=== PATIENT | female | born 1985 | race Caucasian/White ===

== ENCOUNTER → 2022-06-03 17:27 | Outpatient (CLI) | payer OTHER, MEDICAID, SELFPAY ==
--- NOTE | 2022-06-03 17:30 | DI.US.S_ITS ---
PROCEDURE: US PELVIC COMPLETE INDICATIONS: Heavy, painful periods; Pelvic pain TECHNIQUE: Real-time scanning was performed of the pelvic organs, with image documentation. Additional endovaginal scanning was necessary due to incomplete visualization of the adnexal and endometrial structures by transabdominal scanning. COMPARISON: None. FINDINGS: Uterus: Uterus is anteverted and normal in size at 11.1 x 4.1 x 5.9 cm. The myometrium is heterogeneous. The endometrium measures 10 mm combined thickness. Left intramural fibroid measuring 1.9 cm. Ovaries: Normal ovaries measuring 4.2 x 2.3 x 1.9 cm on the right and 3.6 x 1.7 x 3.0 cm on the left. No adnexal masses. Less than 12 subcentimeter follicular cysts bilaterally. Other: No pathologic free abdominal or pelvic fluid. IMPRESSION: 1. A 1.9 cm intramural fibroid. 2. Normal appearance of the ovaries bilaterally. We strive to produce accurate, complete, and clear reports of imaging services. To assist us in improving patient care, this report was composed using standard report templates and voice recognition software. Therefore, it may contain abnormal punctuation, insertions and/or omissions. Occasional wrong-word or sound-alike substitutions may occur. Though we review the report and make efforts to correct it, we do recommend that the report be read carefully in proper context to recognize any text inaccuracies. Dictated by: Los MILLER Interpreted: Danyel Woods MD on 06/04/2022 at 8:57 Transcribed by: SYDNEY on 06/04/2022 at 8:58 Approved by: Danyel Woods M.D. on 06/04/2022 at 21:08
== END ==
PROVIDERS: PCP Family Medicine; Referring Provider Obstetrics & Gynecology; Visit Provider Obstetrics & Gynecology
DX: E28.2 Polycystic ovarian syndrome (principal); R10.2 Pelvic and perineal pain; D25.1 Intramural leiomyoma of uterus
CPT/HCPCS: 76830; 76856

== ENCOUNTER → 2022-07-10 09:20 | Outpatient (CLI) | payer OTHER, MEDICAID, SELFPAY ==
[2022-07-10 10:17] LABS: COVID19 -Nasal RAPID Negative (Negative)
== END ==
PROVIDERS: PCP Family Medicine; Visit Provider Obstetrics & Gynecology
DX: Z20.822 Contact with and (suspected) exposure to COVID-19 (principal); Z01.812 Encounter for preprocedural laboratory examination
CPT/HCPCS: 87635

== ENCOUNTER 2022-07-13 08:56 | Day surgery (SDC) | payer OTHER, MEDICAID, SELFPAY ==
[2022-07-06 12:09] VITALS: BMI 34.0
[2022-07-13] VITALS (16 sets, daily range): BP systolic 85–137; BP diastolic 53–90; PULSE 77–128; RESP 14–45; TEMP 36.1–36.9; O2SAT 92–99; BMI 34.0
--- NOTE | 2022-07-13 | PATH_ITS ---
[facility] Accession Number: [id number] . 01 Material submitted: . uterus - UTERUS,BILATERAL FALLOPIAN TUBES,BILATERAL OVARIES . 01 Diagnosis: A. Uterus, Bilateral Fallopian Tubes, Bilateral Ovaries, Supracervical Hysterectomy, Bilateral Salpingectomy and Oophorectomy: Myometrium with adenomyosis and leiomyoma (1.5 cm). Weakly proliferative endometrium with focal features of breakdown. Bilateral fallopian tubes with features of hydrosalpinx and benign paratubal cysts. Bilateral ovaries with multiple physiologic cysts (up to 1 cm). No evidence of dysplasia, endometrioid intraepithelial neoplasia, or malignancy. MRV 07/20/2022 1119 Local . 01 Electronically signed: . Afsaneh James MD, Pathologist NPI- [id number] . 01 Gross description: . The specimen is received in formalin labeled with the patient's name and uterus, B/L fallopian tubes, B/L ovaries, and consists of a disrupted fragmented uterus (87 grams, 10.5 x 7.4 x 4.2 cm in aggregate) with attached fallopian tube (6.3 x 0.9 cm), and attached ovary (11 grams, 3.7 x 3.2 x 1.5 cm), detached fallopian tube (3.5 x 0.7 cm), detached ovary (10 grams, 4.5 x 2.1 x 1.6 cm), and no cervix identified. Due to the distortion and disruption of the uterus, orientation cannot be determined. The serosa is moon and smooth with no adhesions or hemorrhage identified. The endometrium is moon and velvety, and averages 0.1 cm thick. The myometrium is moon and trabecular, and the maximum thickness cannot be determined. A well-circumscribed white whorled nodule is identified measuring 1.5 cm in greatest dimension with no additional lesions, hemorrhage, or necrosis identified. . The attached fallopian tube has smooth congested serosa with a large cystic structure near the fimbriated end measuring 0.7 cm in greatest dimension filled with clear serous fluid. Sectioning reveals the lumen to be discontinuous but otherwise stellate and unremarkable. The attached ovary is moon and cerebriform, and sectioning reveals multiple cystic structures filled with moon serous fluid measuring up to 1.2 cm in greatest dimension while the remaining ovarian parenchyma is physiologic and unremarkable. . The detached fallopian tube has congested smooth serosa with a cystic structure measuring 0.3 cm in greatest dimension filled with clear serous fluid. Sectioning reveals an unremarkable stellate lumen. The detached ovary is moon and cerebriform, and sectioning reveals multiple cystic structures filled with clear serous fluid measuring up to 1.0 cm in greatest dimension. Software Configuration Manager sections are submitted as follows: . A1: Software Configuration Manager endometrium. A2: Software Configuration Manager white whorled nodule. A3: Attached fallopian to include entire fimbriae and cross-sections. A4: Software Configuration Manager attached ovary to include cystic structures. A5: Detached fallopian tube to include entire fimbriae and cross-sections. A6: Detached ovary to include cystic structures. ([id number]) /MRV 07/15/2022 1231 Local . 01 Pathologist provided ICD-10: N92.0, D25.9 . 01 CPT . 495317 Specimen Comment: A courtesy copy of this report has been sent to [phone] Performed at: 01 [facility] [address] [place] [address] [address] [facility], [place], [place] [id number] MD Lizandro Schrader MD Phone: [phone]
[2022-07-13] MEDS: ACETAMINOPHEN IV 1,000 MG/100 ML VIAL 400 MG IV (09:36)
[2022-07-13] MEDS: LACTATED RINGERS 1,000 ML 42 ML IV (09:36)
--- NOTE | 2022-07-13 09:41 | PM.PREOP ---
Pre-operative Note COVID-19 COVID-19 status: Negative Result date/Date tested (Pos, Neg/Pending): 07/10/22 Criteria for continued procedure: Non-surgical alternatives not available or appropriate per current SOC Interval Note History & Physical reviewed/Exam performed by Physician: Yes Changes to H&P: No
[2022-07-13 09:42] LABS: Add Manual Diff / Slide Review NO; Basophils Absolute Auto 0 /uL (0-100); Basophils Percent Auto 0.2 % (0-2); Eosinophils Absolute Auto 0 /uL (0-450); Hematocrit 35.9 % (36-46); Hemoglobin 11.4 g/dL (12.0-16.0); Lymphocytes Absolute Auto 1100 /uL (1100-4500); Lymphocytes Percent Auto 26.8 % (25-40); Mean Corpuscular HGB Conc 31.8 % (30-36); Mean Corpuscular Hemoglobin 24.2 PG (26-34); Mean Corpuscular Volume 76.3 fL (80-100); Monocytes Absolute Auto 400 /uL (0-900); Monocytes Percent Auto 9.2 % (3-14); Neutrophils Absolute Auto 2600 /uL (1500-7000); Neutrophils Percent Auto 63.8 % (50-75); Platelet Count 326 X10^3/uL (150-400); Red Blood Cell Count 4.71 X10^6/uL (4.0-5.2); Red Cell Distribution Width 16.8 % (11.6-14.8); White Blood Cell Count 4.1 X10^3/uL (4.5-11.0)
[2022-07-13] MEDS: CEFAZOLIN 2 GM/100 ML PREMIX 100 ML IV (10:08)
[2022-07-13] MEDS: BUPIVACAINE 0.5% W/ EPI (PF) 30 ML VIAL INJ (10:25)
--- NOTE | 2022-07-13 10:31 | SUR.OPER ---
Lithotomy on padded OR bed. Wiota Pad Positioner under torso. Head on pillow, arms padded and tucked at sides. Legs secured in padded yellow fins stirrups.
--- NOTE | 2022-07-13 12:11 | P.OP_ITS ---
Operative Date/Time/Diagnoses Date of procedure: 07/13/22 Time of procedure: 10:50 Pre-op diagnosis: Menorrhagia Chronic pelvic pain Premenstrual dysphoric disorder (PMDD) Post-op diagnosis: other (Same as above; abdominopelvic adhesions, lysed) Procedure & Clinicians Procedure: Procedures Operation Date: 07/13/22 09:45 Actual Procedure Side Surgeon p Laparoscopic Supracervical Hysterectomy w/ Bilateral Salpingo-oophorectomy Enrique Shepard MD Indications: Mellisa is a 37-year-old , LMP 05/07/2022, who presented 3 monthas ago with progressively heavy but regular menses.? Patient experienced menarche at age 11 and due to her irregular periods, she was evaluated and diagnosed with PCOS at age 14.? She was started on oral contraceptives which were poorly tolerated therefore discontinued.? Despite her irregular periods, she conceived her 1st without difficulty and delivered by primary section.? She would difficulty getting with her 2nd and despite ovulation induction and treatment of male sub fertility, patient did not become until she had laparoscopy which revealed significant scarring following her for .? Following laparoscopy with lysis of adhesions the patient did conceive spontaneously and delivered her 2nd child by .? Her 3rd resulted in spontaneous miscarriage but her 4th and 5th pregnancies were conceived spontaneously and delivered by repeat section.? Her periods throughout this time were regular but heavy and both the heavy flow and duration have increased significantly since her sterilization procedure performed at time of her last in 2019.? Her menses occur every 30 days with flow lasting 5-7 days.? 3-4 days of her menses are extremely heavy with overflows despite the use of 2 super absorbent tampons and pads.? The patient is essentially homebound for 3-4 days of each period due to severe cramping and heavy flow.? In addition she is been diagnosed with anemia and she continues to take additional iron but feels extremely washed out.? In addition to severe dysmenorrhea with these heavy periods, the patient has developed continuous pain and more recently pain with deep penetration during intercourse.? Pain is not want her pelvis radiates to her low back and she also has some discomfort anteriorly as well.? Patient has had no recent pelvic imaging.? Patient's last Pap was 05/2022 and all of her Paps have been normal throughout her reproductive life.? Review of systems is negative for intermenstrual spotting but she has developed occasional postcoital spotting.? In addition the patient has severe premenstrual dysphoria for the week prior to her menses.? During the course of our conversations we can review the different options for managing both the patient's pain as well as her menorrhagia and severe PMDD symptoms.? She has considered these options since our 1st visit and performed her own due diligence regarding the options.? After considering all those options, the patient has decided that she would like to proceed with hysterectomy at the earliest possible date.? In addition she would like to have bilateral salpingo oophorectomy performed for her severe PMDD symptoms as she is not a candidate for combination oral contraceptives due to a history of migraines with aura.? She presents today for preoperative evaluation, counseling, and consent. Surgeon: Enrique Shepard Shredder/Granulator Operator: Rosario Carr Anesthesia Type: General Operative Notes Findings: Upon entry into the abdomen, extensive adhesions involving the omentum to the anterior abdominal wall extending all the way down to the anterior cul-de-sac on the left were noted. These were all lysed during the course of the surgery. There were extensive adhesions in the the area of the left parametria which were also lysed during the course of the surgery anterior cul-de-sac is free of significant abnormalities but there is significant scarring from the patient's 4 previous sections. The uterus is upper limits of normal size the surface demonstrates changes consistent with adenomyosis. Both ovaries and fallopian tubes appeared to be normal. The remainder of the pelvis and abdomen were normal to laparoscopic visualization Closure Type: primary Specimen(s): left tube & ovary, right tube & ovary and uterus Applied: catheter Estimated blood loss (mL): 25 Blood products transfused: none Procedure in detail: With the patient in modified dorsal lithotomy position preparations were made by prepping and draping the patient in usual manner for vaginal surgery and insertion of Tirado catheter. A pre-surgical time-out was then taken in accordance with [facility] policy. A bivalve speculum was then placed in the vagina and the cervix visualized. The anterior lip of the cervix was then grasped with a single-tooth tenaculum. The uterus was sounded to 8 cm, the endocervical canal dilated slightly, and a Socialite uterine manipulator with a medium colpotomy cup was placed. The umbilicus was then infiltrated with 0.5% Marcaine with epinephrine. A 1 cm umbilical incision was made transversely and a Veress needle was used to insufflate the abdominal cavity with carbon dioxide. Once the abdomen was appropriately insufflated, a 5 mm trocar and sleeve were then placed through the umbilical incision. The scope was placed through the trocar and the initial assessment of the intra-abdominal contents carried out. A 2nd and 3rd 5 mm port was then placed 1st in the right mid quadrant from then the left mid quadrant by infiltration of the skin and subcutaneous tissues, a 1 cm transverse incision and insertion of the 5 mm bladeless port. Using a 3 puncture technique, the abdomen and pelvis were inspected laparoscopy and photographically documented. The omental adhesions involving the anterior abdominal wall were then taken down using the PowerSeal device so as to fully be able to visualize the pelvis. Uterus is mobilized with the VCare manipulator and attention turned to the left adnexa. The distal tube and ovary were elevated and using the PowerSeal device the left infundibulopelvic ligament was coagulated and divided with the dissection then taken down across the mesosalpinx to the round ligament on the left which was coagulated and divided. Adhesions involving the left parametria were then dissected and rendered hemostatic with they PowerSeal device all the way down to the level of the high endocervix. The ascending uterine vessels were then coagulated on the left and the bladder flap extended across the midline to the right side. Adhesions of the bladder to the cervix and the upper vagina were extremely dense and therefore the decision was made to proceed with a supracervical procedure instead of a TLH. Attention was then turned to the right side where the distal tube and ovary was grasped and the infundibulopelvic ligament on the right coagulated and divided with the PowerSeal device. The dissection was then carried out toward the cornua and dissection was then carried down using the PowerSeal device so as to divide the round ligament with blunt and sharp dissection of the broad down to the level of the uterine artery. The uterine artery was then skeletonized after completing development of a bladder flap, coagulated, and divided. The uterus was completely devascularized after coagulation of both uterine arteries and the VCare device was removed from the uterine cavity. A Joelle loop was then used to amputate the uterine corpus at the level of the high endocervix and the cervical stump was coagulated with monopolar current. There was no evidence of any bleeding on either side and the endocervical canal was then coagulated with monopolar cautery. A 4 cm transverse incision was made along the line of the old Pfannenstiel scars and a 15 mm trocar and sleeve was inserted through the incision into the abdominal cavity. An Endo-Catch specimen retrieval bag was then used to capture the ut erus and brought up through the incision. The fascial incision was then extended bilaterally and a small Sae retractor was placed into the bag so that the specimen could be safely morcellated. Once the morcellation was complete, the Sae retractor was removed and repair of the fascial defect was accomplished with 0 Vicryl in a running stitch. The abdomen was then reinsufflated, the pelvis inspected for any abnormality or bleeding, and with complete hemostasis assured, the pneumoperitoneum was vented and the ports removed. All of the 5 mm ports were then closed with 4-0 Monocryl on the skin using inverted interrupted sutures. The skin of the transverse suprapubic incision was then approximated with 4-0 Monocryl inverted interrupted sutures. Skin glue was placed and after the glue was dried, an appropriate dressings were applied. The case was then terminated, the patient awakened, and then transferred to PACU after having tolerated the procedure well. Complications: none Post-operative Condition: stable Disposition: PACU Plan for aftercare: Recovery in ambulatory surgery in discharge home later today if pain is under control and she is tolerating oral intake well.
[2022-07-13] MEDS: diphenhydrAMINE 50 MG/ML VIAL 25 MG IV ×2 (12:30→12:44)
[2022-07-13] MEDS: hydrOXYzine 50 MG/ML INJ IM (12:49)
[2022-07-13] MEDS: LORazepam 2 MG/ML INJ 0.5 MG IV (13:04)
[2022-07-13] MEDS: LACTATED RINGERS 1,000 ML 100 ML IV ×2 (14:25→23:57)
[2022-07-13] MEDS: KETOROLAC 30 MG/ML VIAL IV ×2 (16:10→20:16)
[2022-07-13] MEDS: TOPIRAMATE 100 MG TABLET 200 MG PO (16:11)
[2022-07-13 16:49] LABS: Estimated Glomerular Filt Rate > 60 mL/min (>60)
[2022-07-13] MEDS: OXYCODONE IR 5 MG TABLET 10 MG PO ×2 (17:23→22:10)
[2022-07-13] MEDS: VENLAFAXINE ER 75 MG CAP 300 MG PO (17:26)
--- NOTE | 2022-07-13 19:34 | PC.NURSE ---
Pt arrived to room 223 at 1710 she is A&Ox3, very lethargic allowed to rest. She is easily aroused and able to answer questions appropriately. Scant spotting to christian pad. Lap sites x4 c/d/i/. continuous monitoring. Tirado in place. LR at 100 ml/hr.
[2022-07-13] MEDS: SPIRONOLACTONE 25 MG TABLET 50 MG PO (20:16)
[2022-07-13] MEDS: DOCUSATE 100 MG CAPSULE 200 MG PO (20:16)
[2022-07-13] MEDS: ACETAMINOPHEN 325 MG TABLET 650 MG PO (22:11)
[2022-07-13] MEDS: MORPHINE 4 MG/ML INJ IV (23:55)
[2022-07-13] MEDS: TRAZODONE 50 MG TABLET PO (23:55)
--- NOTE | 2022-07-14 00:44 | PC.NURSE ---
Patient lying in bed, a/o x 4 and using call light appropriately. Scant drainage to christian pad. Lap sites are CDI. Sister at bedside.
[2022-07-14] MEDS: OXYCODONE IR 5 MG TABLET 10 MG PO ×3 (01:37→14:07)
[2022-07-14] MEDS: KETOROLAC 30 MG/ML VIAL IV ×2 (01:37→06:15)
[2022-07-14 06:21] VITALS: BP 102/69; PULSE 68; RESP 16; TEMP 36.4; O2SAT 99
[2022-07-14 06:28] LABS: Add Manual Diff / Slide Review NO; Basophils Absolute Auto 0 /uL (0-100); Basophils Percent Auto 0.1 % (0-2); Eosinophils Absolute Auto 0 /uL (0-450); Hemoglobin 9.9 g/dL (12.0-16.0); Lymphocytes Absolute Auto 1500 /uL (1100-4500); Lymphocytes Percent Auto 23.3 % (25-40); Mean Corpuscular Volume 77.9 fL (80-100); Monocytes Absolute Auto 500 /uL (0-900); Monocytes Percent Auto 8.4 % (3-14); Neutrophils Absolute Auto 4400 /uL (1500-7000); Neutrophils Percent Auto 68.2 % (50-75); Platelet Count 281 X10^3/uL (150-400); Red Blood Cell Count 3.97 X10^6/uL (4.0-5.2); Red Cell Distribution Width 17.1 % (11.6-14.8); White Blood Cell Count 6.4 X10^3/uL (4.5-11.0)
--- NOTE | 2022-07-14 07:05 | PM.DS.1 ---
History of Present Illness History of Present Illness Date Patient Seen: 07/14/22 Time Patient Seen: 07:30 Chief complaint: TOTAL LAP HYSTERECTOMY W/KANDI SALPINGECTOMY *OPB* Discharge Providers Provider Date of admission: 07/13/2022 Discharge Date: 07/14/22 Primary care physician: Timothy Pinto MD Discharge provider: Enrique Shepard MD Summary Hospital Course Discharge Diagnosis: Status post laparoscopic supracervical hysterectomy with bilateral salpingo oophorectomy for intractable menorrhagia, chronic pelvic pain, and severe PMDD Hospital Course: Mellisa was admitted on the morning of 07/13/2022 and underwent an uneventful laparoscopic supracervical hysterectomy with bilateral salpingo oophorectomy. Details of the procedure are well summarized on my operative note of that date. Following surgery the patient has done extremely well with prompt return of bowel and bladder function, she is ambulating independently, tolerating a regular diet, and her pain is well controlled with oral pain medications. She will be discharged at this time to home in an afebrile normotensive condition after counseling regarding precautionary symptoms, limitations activity, medications, and plans for follow-up which will be in approximately 4 weeks. Medications at discharge will include all of her home meds she was taking prior to surgery including oxycodone 5 mg every 4-6 hours as needed pain, and naproxen as needed. In addition she will start taking transdermal estradiol 0.075 mg daily via a twice weekly patch, and Prometrium 200 mg p.o. HS. The latter 2 prescriptions were sent electronically to her pharmacy on [facility]. Status at Discharge Cognitive/behavioral status at discharge: oriented Functional status at discharge: independent ambulation Overall status at discharge: patient is progressing back to baseline Time Spent with Patient Time spent: Less than 30 minutes Exam Vital Signs (past 8 hours): - 07/14/22 06:21 Temperature 97.5 F L Pulse Rate 68 Respiratory Rate 16 Blood Pressure 102/69 Pulse Oximetry 99 Oxygen Flow Rate 0 Oxygen Delivery Method Room Air Oxygen Flow Rate 0 Const General: cooperative and comfortable Nutritional Appearance: average body habitus Orientation: alert and oriented x3 HENMT Head: normal to inspection, atraumatic and abrasion Ears: hearing grossly normal bilaterally Face and sinus: face symmetric Eyes General: appearance normal, both eyes and all related structures Conjunctivae: conjunctivae normal Sclera: sclerae normal EOM: EOM intact bilaterally Neck Neck: normal visual inspection Resp Effort & Inspection: normal respiratory effort and able to speak in complete sentences Auscultation: clear to auscultation bilaterally Cardio Rate: regular rate Rhythm: regular rhythm Heart Sounds: S1 normal, S2 normal and no murmurs GI Inspection: normal to inspection and incision (Surgical dressings clean and dry) Palpation: soft, no hepatosplenomegaly and tender (Mild, diffuse postsurgical tenderness) External Female Exam: other (No significant bleeding noted) Extrem General: no calf tenderness Psych Appearance: grossly normal Mental Status: mental status grossly normal Speech and Movement: speech and movement normal Mood: congruent mood Affect: normal affect Attitude: cooperative Thought Process: normal Thought Content: normal Judgment: judgment good Objective Labs Result Diagrams: 07/14/22 06:09 07/13/22 16:20 Labs: Laboratory Results - last 24 hr 07/13/22 07/13/22 07/13/22 09:15 09:25 16:20 WBC 4.1 L RBC 4.71 Hgb 11.4 L Hct 35.9 L MCV 76.3 L MCH 24.2 L MCHC 31.8 RDW 16.8 H Plt Count 326 Neut % (Auto) 63.8 Lymph % (Auto) 26.8 Cottle % (Auto) 9.2 Eos % (Auto) 0.0 L Baso % (Auto) 0.2 Neut # (Auto) 2600 Lymph # (Auto) 1100 Cottle # (Auto) 400 Eos # (Auto) 0 Baso # (Auto) 0 Creatinine 0.66 Estimated GFR > 60 Blood Type O Negative Antibody Screen Negative 07/14/22 06:09 WBC 6.4 D RBC 3.97 L Hgb 9.9 L Hct 31.0 L MCV 77.9 L MCH 25.0 L MCHC 32.0 RDW 17.1 H Plt Count 281 Neut % (Auto) 68.2 Lymph % (Auto) 23.3 L Cottle % (Auto) 8.4 Eos % (Auto) 0.0 L Baso % (Auto) 0.1 Neut # (Auto) 4400 Lymph # (Auto) 1500 Cottle # (Auto) 500 Eos # (Auto) 0 Baso # (Auto) 0 Creatinine Estimated GFR Blood Type Antibody Screen [facility] Medical History (Updated 07/10/22 @ 10:00 by Enrique Shepard MD) Anemia Anxiety and depression Asthma Chicken pox (~1987) Fibroids (~2001) Headache Heavy menstrual period (~1997) Migraines Ovarian cyst (~1999) Painful menstrual periods (~1997) PCOS (polycystic ovarian syndrome) (~1998) Sleep apnea Surgical History (Updated 08/26/21 @ 21:55 by Anushka Wilson) Anesthesia History of arthroscopy of knee (~1995) History of section History of knee surgery (~1997) Family History (Updated 08/26/21 @ 21:59 by Anushka Wilson) Father Diabetes mellitus Hypertension Hyperlipidemia Mental health problem Mother Cancer Mental health problem Brother Mental health problem Sister Mental health problem Grandfather Cancer Hypertension Hyperlipidemia Grandmother Cancer Social History household members: spouse and children Smoking Status: Never smoker alcohol intake: current Discharge Assessment & Plan Assessment and Plan Assessment: Status post laparoscopic supracervical hysterectomy with bilateral salpingo oophorectomy for intractable menorrhagia, chronic pelvic pain, and severe PMDD Plan of Treatment: Routine postoperative care with initiation of postsurgical HRT in the form of estradiol biweekly patch 0.075 mg and Prometrium 200 mg p.o. HS. Follow-up to be arranged in 2 weeks. Discharge Plan Discharge Plan Patient Disposition: Home Provider Discharge Comment: Please review the written instructions you received when you were discharged from the hospital. Your follow-up will need to be scheduled in about 4 weeks after my returned from vacation on 08/04/2022. In the meanwhile in my absence, if you have any questions, concerns, or issues that need to be addressed, please contact my office at [phone] and one of my colleagues can address those concerns. Discharge orders & Medications Discharge Orders: Discharge (Order); Ordered 07/14/22 Ordered By: Enrique Shepard Prescriptions: New estradiol [Vivelle-Dot] 0.075 mg/24 hr patch semiweekly 1 patch transdermal 2XW Qty: 8 12RF Rx Instructions: apply 1 patch for 3 days alternating with 1 patch for 4 days each week for 3 wks per 4-wk cycle progesterone micronized [Prometrium] 200 mg capsule 200 mg PO BEDTIME Qty: 30 12RF Continued topiramate 200 mg tablet 200 mg PO DAILY Qty: 30 0RF ondansetron 8 mg tablet,disintegrating 8 mg PO Q8H PRN (Reason: nausea and vomiting) Qty: 20 0RF oxycodone 5 mg tablet 5 mg PO Q4H PRN (Reason: pain) Qty: 30 0RF naproxen 500 mg tablet 500 mg PO Q8H PRN (Reason: pain) Qty: 30 12RF Rx Instructions: For best effect, start medication 1-2 days prior to expected onset of period spironolactone 50 mg tablet 50 mg PO BID Qty: 60 12RF venlafaxine 150 mg capsule,extended release 24hr 220 mg PO DAILY trazodone 50 mg tablet 50 mg PO BEDTIME PRN (Reason: Sleep) venlafaxine 75 mg capsule,extended release 24hr 75 mg PO DAILY Rx Instructions: TAKE 1 CAPSULE (75 MG) BY MOUTH DAILY. TO BE TAKEN WITH EXISTING 150 MG DAILY FOR AT TDD OF 225 MG. dextroamphetamine-amphetamine 30 mg capsule,extended release 24hr 60 mg PO QAM Rx Instructions: TAKE 2 CAPSULES (60 MG) BY MOUTH EVERY MORNING. albuterol sulfate 90 mcg/actuation HFA aerosol inhaler 1 puff inhalation ONCE PRN (Reason: Shortness Of Breath) clindamycin phosphate 1 % solution 1 applic topical BID lithium carbonate 300 mg capsule 300 mg PO BID Follow up/Referrals: Timothy Pinto MD [Primary Care Provider] - Enrique Shepard MD [Physician] - Diet/Activity/Treatments Diet: Diet as Tolerated Activity: As tolerated Other treatments: [id number] Tylenol may be used for additional pain relief. Foxe-brp-rfithvo stool softeners may be necessary if you become constipated. Skin/Wound/Dressing Care Report to your healthcare provider any signs of infection, such as:: chills, fever, night sweats, increased pain, unusual drainage and unusual redness Dressing: The upper 3 dressings may be removed on the morning of 07/15/2022. The lower dressing should remain in place until 07/16/2022. Visit Report/Discharge Packet Instructions: DI for Hysterectomy, DI for Laparoscopy, DI for Prescription Opioid Use Stand Alone Forms: Surgery Discharge Print Language: Latvian Discharge Data Primary Care Provider: Timothy Pinto Attending Provider: Enrique Shepard Quality VTE Deep Vein Thrombosis/Pulmonary Embolism Present on Admission: No
[2022-07-14] MEDS: DOCUSATE 100 MG CAPSULE 200 MG PO (09:59)
[2022-07-14] MEDS: ACETAMINOPHEN 325 MG TABLET 650 MG PO (10:00)
[2022-07-14] MEDS: VENLAFAXINE ER 75 MG CAP 300 MG PO (10:44)
[2022-07-14] MEDS: TOPIRAMATE 100 MG TABLET 200 MG PO (10:45)
[2022-07-14] MEDS: estradioL 1 MG TABLET PO (10:45)
--- NOTE | 2022-07-14 12:41 | CM.DANOTE ---
DCP Assessment: Payor: Morgan PCP: Timothy Pinto Pt is a 37 y.o. F admitted to the AC unit following total hysterectomy. Pt came up to the AC unit for observation following surgery. DCP attempted to meet with pt but pt asleep. Sister at the bedside and DCP able to talk to her. DCP introduced herself and role. Pt sister states she lives on [address] with her and children. Sister came up from [place] to help take care of pt and pt children. Pt is independent at baseline and still drives POV. Sister anticipates discharge tonight. Sister having to take ferry and requesting ferry pass. DCP instructed her to talk with nurse upon discharge. No other needs at this time. DCP to continue to follow case. White board updated and instructed to call if needed. Sister thankful for discussion. P: Once pt is medically stable for discharge, pt to discharge home back to [facility] with her sister. Elaina Pace RN/NORISP Discharge Planning/Care Management CM Discharge Assessment Start: 07/14/22 11:46 Freq: Status: Active Protocol: Document 07/14/22 12:40 AJ (Rec: 07/14/22 12:41 [id number]) Discharge Planning Assessment Assigned Morning Caregiver Elaina Pace RN/NORISP Advance Directives? No History Provided By Family Member,Medical Record Prior Living Arrangements House Household Members spouse,children Type of transporation used prior to Drives own vehicle admit Independent with ADL's Yes Is patient alert and oriented? Yes Caregiver for Another Yes: Children Discharge Plan Home Transportation Arrangement Sister POV Referrals Initiated None needed Whiteboard Updated in Patient Room with Yes name and ext. # of Morning Caregiver Comment Instructed to call Review Status In Process Please Provide Date Initial DC 07/14/22 Assessment Was Performed Next Review Type Continued Stay Review Pre-Anesthesia Assessment Start: 07/06/22 10:50 Freq: Status: Active Protocol: Document 07/06/22 12:09 CAB (Rec: 07/06/22 12:14 CAB [id number]) Pre-Anesthesia Assessment Patient Information Reviewed Via Chart Review Comment COVID screen not identified Seen Specialist in Last 12 Months Yes Specialist Seen Picture Painter,Other Primary Language Sudanese Public Affairs Officer Required No Height 160.02 cm Weight 87.09 kg Body Mass Index (BMI) 34.0 Barriers to Learning None Hx Anesthesia Reactions No Anesthesia Review Requested No Loan Assistant No Smoking Status Never smoker Pain Present Pain Reported Patient is completely paralyzed or No completely immobile Mental Status Oriented to own ability Hx Sleep Apnea No Currently Taking a Beta Lee No Anti-Coagulant Therapy No Cardiac Testing No Hx Pacemaker/ICD No Pacemaker Rep Required? No Cardiac Clearance Received Not Applicable Urinary Catheter Present No Hx Urinary Self Catheterization No Diabetes No Patient No Marital Status Patient Discharge Plan Description Return Home Comment Lives on [facility]
[2022-07-14 13:50] VITALS: BP 94/68; PULSE 95; RESP 16; TEMP 36.1; O2SAT 99
--- NOTE | 2022-07-14 19:06 | PC.NURSE ---
Discharge: Pt feels ready to d/c to home. Sister is taking her home. Has been up and walking in room. Po pain meds have been effective. Tirado out and has voided with out problems. Tolerates diet w/out problems. Seen by MD and given d/c instructions. Dressings on abd are c/d/i. Priority load pass given. Spouse has already picked up rx for her at pharmacy. Pt d/c to home via auto with sister.
== END 2022-07-14 16:56 | disposition home or self-care (01) ==
LOC: OR 08:58 → AC 14:02
PROVIDERS: PCP Family Medicine; Referring Provider Obstetrics & Gynecology; Visit Provider Obstetrics & Gynecology
PROC: 0UT94ZZ Resection of Uterus, Percutaneous Endoscopic Approach (ICD-10-PCS; CPT 58542; principal; 2022-07-13 09:45)
DX: N92.0 Excessive and frequent menstruation with regular cycle (principal); F32.81 Premenstrual dysphoric disorder; N73.6 Female pelvic peritoneal adhesions (postinfective); N83.202 Unspecified ovarian cyst, left side; N83.201 Unspecified ovarian cyst, right side; N83.8 Other noninflammatory disorders of ovary, fallopian tube and broad ligament; D25.9 Leiomyoma of uterus, unspecified; N80.03 Adenomyosis of the uterus
CPT/HCPCS: 58542; 36415; 82565; 82962; 85025; 86850; 86900; 86901; J0131; J0690; J1100; J1170; J1200; J1885; J2060; J2250; J2270; J2405; J2704; J3010; J3410

== ENCOUNTER → 2022-12-05 12:43 | Outpatient (CLI) | payer OTHER, MEDICAID, SELFPAY ==
[2022-07-13 14:20] VITALS: BMI 34.0
[2022-12-05 12:59] LABS: Hematocrit 38.2 % (36-46); Mean Corpuscular HGB Conc 31.3 % (30-36); Mean Corpuscular Hemoglobin 23.5 PG (26-34); Platelet Count 364 X10^3/uL (150-400); Red Blood Cell Count 5.09 X10^6/uL (4.0-5.2); Red Cell Distribution Width 18.6 % (11.6-14.8); White Blood Cell Count 6.2 X10^3/uL (4.5-11.0)
[2022-12-05 13:49] LABS: Testosterone 59.3 ng/dL (5.71-77.0)
[2022-12-05 15:29] LABS: Progesterone, Total 6.46 ng/mL
[2022-12-05 15:42] LABS: Thyroid Stimulating Hormone 0.784 uIU/mL (0.47-4.68)
[2022-12-05 15:45] LABS: Estradiol, Total 42.6 pg/mL
== END ==
PROVIDERS: PCP Family Medicine; Referring Provider Obstetrics & Gynecology; Visit Provider Obstetrics & Gynecology
DX: Z13.89 Encounter for screening for other disorder (principal); Z79.890 Hormone replacement therapy
CPT/HCPCS: 36415; 82670; 84144; 84403; 84443; 85027

== ENCOUNTER 2022-12-16 17:56 | Emergency (ER) | payer OTHER, MEDICAID, SELFPAY ==
[2022-07-13 14:20] VITALS: BMI 34.0
[2022-12-16 18:12] VITALS: BP 128/84; PULSE 93; RESP 15; TEMP 36.7; O2SAT 93; BMI 37.5
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
--- NOTE | 2022-12-16 19:52 | DI.CT.S_ITS ---
PROCEDURE: CT HEAD/BRAIN WO CON INDICATIONS: post concussive syndrome TECHNIQUE: Noncontrast 4.5 mm thick angled axial sections acquired from the foramen magnum to the vertex, with coronal and sagittal reformats. For radiation dose reduction, the following was used: automated exposure control, adjustment of mA and/or kV according to patient size. COMPARISON: None. FINDINGS: Image quality: Excellent. CSF spaces: Basal cisterns are patent. No extra-axial fluid collections. Ventricles are normal in size and shape. Brain: No intracranial hemorrhage, mass, or mass effect. Mooney-white matter interface appears preserved. Skull and face: Calvarium and visualized facial bones are intact, without suspicious lesions. Sinuses: Visualized sinuses and mastoids are clear. IMPRESSION: 1. No acute intracranial abnormality. Dictated by: Lizandro Hart M.D. on 12/16/2022 at 20:12 Approved by: Lizandro Hart M.D. on 12/16/2022 at 20:13
[2022-12-16] MEDS: ONDANSETRON 4 MG ODT SL (20:02)
[2022-12-16] MEDS: diphenhydrAMINE 25 MG TABLET PO (20:02)
[2022-12-16] MEDS: DEXAMETHASONE 10 MG/ML VIAL PO (20:03)
[2022-12-16] MEDS: ACETAMINOPHEN 325 MG TABLET 650 MG PO (20:03)
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
[2022-12-16 20:16] VITALS: BP 118/78; PULSE 77; RESP 18; TEMP 37.1; O2SAT 99
[2022-12-16 20:31] LABS: Bacteria Urine None Seen; Culture Indicated Urine Cult Not Indicated; RBC Urine 0-1/HPF (0-5/HPF); Squamous Epithelial Cell Urine 5-10 /HPF (0-5/HPF); WBC Urine 0-1/HPF (0-5/HPF)
[2022-12-16 20:35] VITALS: BP 115/71; PULSE 74; O2SAT 99
== END 2022-12-16 20:50 | disposition home or self-care (01) ==
PROVIDERS: Emergency Provider Nurse Practitioner Critical Care Medicine; PCP Family Medicine; Referring Provider Family Medicine
DX: F07.81 Postconcussional syndrome (principal); W22.8XXA Striking against or struck by other objects, initial encounter
CPT/HCPCS: 70450; 81003; 81015; 81025; 99284; J1100

== ENCOUNTER → 2024-09-13 09:30 | Outpatient (CLI) | payer OTHER, MEDICAID, SELFPAY ==
[2022-07-13 14:20] VITALS: BMI 34.0
[2024-09-13 19:43] LABS: Add Manual Diff / Slide Review NO; Basophils Absolute Auto 0 /uL (0-100); Basophils Percent Auto 0.1 % (0-2); Eosinophils Absolute Auto 0 /uL (0-450); Hematocrit 42.5 % (36-46); Lymphocytes Absolute Auto 1400 /uL (1100-4500); Lymphocytes Percent Auto 23.4 % (25-40); Mean Corpuscular Hemoglobin 28.3 PG (26-34); Mean Corpuscular Volume 85.5 fL (80-100); Monocytes Absolute Auto 400 /uL (0-900); Neutrophils Absolute Auto 4200 /uL (1500-7000); Neutrophils Percent Auto 70.5 % (50-75); Platelet Count 337 X10^3/uL (150-400); Red Blood Cell Count 4.96 X10^6/uL (4.0-5.2); Red Cell Distribution Width 14.2 % (11.6-14.8)
[2024-09-13 19:55] LABS: Alanine Aminotransferase 43 IU/L (<35); Albumin 4.3 g/dL (3.5-5.0); Albumin Globulin Ratio 1.5 (1.0-2.8); Alkaline Phosphatase 121 U/L (38-126); Aspartate Aminotransferase 33 IU/L (14-36); BUN Creatinine Ratio 30.8 (6-22); Bilirubin Total 0.8 mg/dL (0.2-1.3); Blood Urea Nitrogen 20 mg/dL (7-17); Calcium 9.3 mg/dL (8.4-10.2); Carbon Dioxide 24 mmol/L (22-32); Chloride 106 mmol/L (98-107); Cholesterol 213 mg/dL (140-199); Estimated Glomerular Filt Rate > 60 mL/min (>60); Globulin 2.8 g/dL (1.7-4.1); Glucose 89 mg/dL (70-100); HDL Cholesterol 58 mg/dL (40-60); HEMOLYSIS < 15 (0-50); LDL Cholesterol Calculated 133 mg/dL (<100); Potassium 4.4 mmol/L (3.4-5.1); Sodium 137 mmol/L (137-145); Total Protein 7.1 g/dL (6.3-8.2); Triglycerides 112 mg/dL (35-150)
[2024-09-13 19:59] LABS: Hemoglobin A1C% w Est Avg Glu 4.9 % (4.0-6.0)
[2024-09-13 20:27] LABS: TSH w/ Reflex to FT4 1.37 uIU/mL (0.47-4.68)
[2024-09-21 06:07] LABS: Percent Free Testosterone 3.58 % (0.50-2.80); Testosterone Free 0.86 ng/dL (0.10-0.85)
== END ==
PROVIDERS: PCP Nurse Practitioner Adult Health; Visit Provider Nurse Practitioner Adult Health
DX: Z79.890 Hormone replacement therapy (principal); E28.2 Polycystic ovarian syndrome; L68.0 Hirsutism
CPT/HCPCS: 80053; 80061; 83036; 83498; 84402; 84403; 84443; 85025